=== PATIENT | male | born 1960 | race Caucasian/White ===

== ENCOUNTER 2018-05-03 02:20 | Inpatient (IN) | payer MEDICARE, OTHER ==
[2018-05-03] VITALS (13 sets, daily range): BP systolic 138–183; BP diastolic 80–108
[~2018-05-03] VITALS: Ht 190.5 cm; Wt 87.1 kg
--- NOTE | 2018-05-03 02:28 | ED.ADGEN ---
Past History Past Medical History: COPD, Seizure, Other Past Surgical History: Other Adult General Chief Complaint Chief Complaint ".. I guess I passed out... and I bit my lip..." HPI HPI Patient is a 57 year old male who presents with hx of convulsion and mental status change. Pt. has hx of years of 1/5 to Liter of volka a day. Recently has decided to quit. Pt. is tremulous, and family report he is had a market mental status change and an episode of syncope with convulsions. Patient currently appears somewhat postictal and confused. Review of Systems Review of Systems Constitutional: Denies fever or chills [] Eyes: Denies change in visual acuity, redness, or eye pain [] HENT: Denies nasal congestion or sore throat [] Respiratory: Denies cough or shortness of breath [] Cardiovascular: No additional information not addressed in HPI [] GI: Denies abdominal pain, nausea, vomiting, bloody stools or diarrhea [] : Denies dysuria or hematuria [] Musculoskeletal: Denies back pain or joint pain [] Integument: Denies rash or skin lesions [] Neurologic: Denies headache, focal weakness or sensory changes []history of seizure and syncope Endocrine: Denies polyuria or polydipsia [] All other systems were reviewed and found to be within normal limits, except as documented in this note. Family History Family History Noncontributory Current Medications Current Medications Current Medications Medications (Trade) Dose Ordered Sig/Jeff Start Time Stop Time Status Last Admin Dose Admin Famotidine (Pepcid Vial) 20 mg 1X ONCE 05/03/18 02:45 05/03/18 02:46 DC 05/03/18 03:28 20 MG Lactated Ringer's 1,000 ml @ 160 mls/hr Q6H15M 05/03/18 02:45 05/03/18 06:17 160 MLS/HR Lorazepam (Ativan) 2 mg 1X ONCE 05/03/18 02:45 05/03/18 02:46 DC 05/03/18 03:31 2 MG Multivitamins/ Minerals 10 ml/ Folic Acid 1 mg/ Thiamine HCl 100 mg/Sodium Chloride 1,011.2 ml @ 1,000 mls/ hr Q1H 05/03/18 02:45 05/03/18 03:33 DC 05/03/18 03:33 1,000 MLS/HR Allergies Allergies Allergies Coded Allergies Type Severity Reaction Last Updated Verified No Known Drug Allergies 05/03/18 No Physical Exam Physical Exam Constitutional: Moderately acute distress, non-toxic appearance. [] HENT: Normocephalic, bite ferro to tongue and lip, bilateral external ears normal, oropharynx moist, no oral exudates, nose normal. [] Eyes: PERRLA, EOMI, conjunctiva normal, no discharge. [] Neck: Normal range of motion, no tenderness, supple, no stridor. [] Cardiovascular: Tachycardia Heart rate regular rhythm, no murmur []PMI to the left Lungs & Thorax: Bilateral breath sounds equal at apexes with scattered wheezes auscultation [] Abdomen: Bowel sounds decreased, soft, no tenderness, no masses, no pulsatile masses. [] Incontinence of urine Skin: Warm, dry, no erythema, no rash. [] Back: No tenderness, no CVA tenderness. [] Extremities: No tenderness, no cyanosis, no clubbing, ROM intact, no edema. Arthritic changes. Neurologic: Alert and oriented X 3, no gross motor or sensory function deficits. Moves all extremities on request. Is very tremulous Current Patient Data Vital Signs Vital Signs Date Time Temp Pulse Resp B/P (MAP) Pulse Ox O2 Delivery O2 Flow Rate FiO2 05/03/18 02:20 98.4 91 20 99 Room Air EKG EKG My interpretation EKG shows a sinus rhythm at 88 bpm. Does have right basilar bunch block.[] Radiology/Procedures Radiology/Procedures My interpretation of chest x-ray shows no acute cardiopulmonary findings. Chronic changes consistent with COPD. Mild arthritic changes. My interpretation of head CT shows no shift, mass, edema, bleed, or fracture. Does have significant atrophy.[] Course & Med Decision Making Course & Med Decision Making Pertinent Labs and Imaging studies reviewed. (See chart for details). Discussed presentation, testing and treatment plan with Dr. Bernardo [] Final Impression Final Impression 1. Alcohol withdrawal 2. Mental status change[] 3. Hypomagnesemia 4. Anemia macrocytic hyperchromic 5. Thrombocytopenia 6. Hyponatremia 7. Elevated AST and ALTs Dragon Disclaimer Dragon Disclaimer This electronic medical record was generated, in whole or in part, using a voice recognition dictation system. ALONA URBAN MD May 03, 2018 02:28
[2018-05-03] MEDS ORDERED: LORazepam 2 MG/ML VIAL ONE (02:39)
[2018-05-03] MEDS ORDERED: MVI, ADULT NO.4 WITH VIT K 10 ML VIAL IV ONE (02:39)
[2018-05-03] MEDS ORDERED: FAMOTIDINE 20 MG/2 ML VIAL ONE (02:39)
[2018-05-03] MEDS ORDERED: FOLIC ACID 5 MG/ML SYRINGE for ER IV ONE (02:40)
[2018-05-03] MEDS ORDERED: THIAMINE 200 MG/2 ML VIAL. IV ONE (02:40)
[2018-05-03] MEDS ORDERED: LORazepam 2 MG/ML VIAL IV ONE (02:45)
[2018-05-03] MEDS ORDERED: FAMOTIDINE 20 MG/2 ML VIAL IVP ONE (02:45)
[2018-05-03] MEDS ORDERED: MVI, ADULT NO.4 WITH VIT K 10 ML, FOLIC ACID SYRINGE for ER 1 MG, THIAMINE 100 MG in IV... IV SCH ×4 (02:45)
--- NOTE | 2018-05-03 03:03 | EKG ---
[address] [address] Test Date: 2018-05-03 Test Time: 03:01:20 Pat Name: ALONA DELVALLE Department: Room: Gender: M [employer] Loss [employer] Investigator: WALT : 1960 Requested By: ALONA URBAN Order Number: [id number] Reading MD: Deniz Price MD Measurements Intervals [place] Rate: 88 P: 27 UT: 170 QRS: 62 QRSD: 118 T: 20 QT: 384 QTc: 468 Interpretive Statements SINUS RHYTHM RBBB Electronically Signed On 05-07-2018 11:12:44 CDT by Deniz Price MD
--- NOTE | 2018-05-03 03:05 | RAD ---
CT head without contrast TECHNIQUE: [address] imaging skull base to vertex. HISTORY: Seizure activity, confusion, weakness. FINDINGS: Generalized brain atrophy. No intracranial hemorrhage, mass, hydrocephalus, extra-axial fluid collections or infarction. No acute ischemic changes. Orbits, mastoids, paranasal sinuses and bones are unremarkable. IMPRESSION: No acute intracranial CT abnormality. Exposure: One or more of the following individualized dose reduction techniques were utilized for this examination: 1. Automated exposure control 2. Adjustment of the mA and/or kV according to patient size 3. Use of iterative reconstruction technique Electronically signed by: Lorne Castro MD (05/03/2018 3:01 AM) [facility]
[2018-05-03] MEDS: IV RINGERS SOLUTION,LACTATED 1,000 ML IV SCH ×4 (03:33→22:45)
[2018-05-03] MEDS ORDERED: ONDANSETRON PF 4 MG/2 ML VIAL. IV PRN (03:45)
[2018-05-03] MEDS ORDERED: cloNIDine TTS-2 1 PATCH PATCH TD ONE (04:15)
[2018-05-03 04:31] LABS: ACETAMIN < 2.0 mcg/mL (10-30); ETHANOL < 10 mg/dL (0-10); SALIC 4.8 mg/dL (2.8-20.0)
[2018-05-03 04:34] LABS: ALBUMIN 3.7 g/dL (3.4-5.0); CALCIUM 9.4 mg/dL (8.5-10.1); CREATININE 1.1 mg/dL (0.7-1.3); DIRECT BILIRUBIN 0.4 mg/dL (0.0-0.2); MAGNESIUM 1.2 mg/dL (1.8-2.4); POTASSIUM 3.5 mmol/L (3.5-5.1); TOTAL PROTEIN 8.3 g/dL (6.4-8.2)
[2018-05-03 04:50] LABS: BASO % 0 % (0-3); EOS % 0 % (0-3); HEMATOCRIT 36.9 % (39.0-53.0); HEMOGLOBIN 12.9 g/dL (13.0-17.5); LYMPH # 0.3 x10^3/uL (1.0-4.8); LYMPH % 4 % (24-48); MEAN CORPUSCULAR HEMOGLOBIN 37 pg (25-35); MEAN CORPUSCULAR HGB CONC 35 g/dL (31-37); MEAN CORPUSCULAR VOLUME 105 fL (79-100); MONO # 0.4 x10^3/uL (0.0-1.1); MONO % 6 % (0-9); NEUT # 6.2 x10^3uL (1.8-7.7); NEUT % 90 % (31-73); PLATELET COUNT 44 x10^3/uL (140-400); RED CELL DISTRIBUTION WIDTH 14.2 % (11.5-14.5)
--- NOTE | 2018-05-03 05:01 | RAD ---
AP chest x-ray HISTORY: Seizure activity, confusion and weakness and cough and congestion. FINDINGS: Heart size normal. Mediastinal silhouette is normal. No pneumothorax. No pleural effusions. No pulmonary opacities. At the right lateral lung base there is a 12 mm pulmonary nodule versus asymmetric nipple shadow. Bones are unremarkable. IMPRESSION: No acute process. Possible 12 mm pulmonary nodule at the right lung base versus a nipple shadow. This could be further assessed with PA and lateral chest x-rays with nipple markers. Electronically signed by: Lorne Castro MD (05/03/2018 4:58 AM) [facility]
[2018-05-03 05:07] LABS: ANISOCYTOSIS SLIGHT; PLT ESTIMATE DECREASED (ADEQUATE)
[2018-05-03] MEDS ORDERED: MAGNESIUM SULFATE 2GM 50 ML IV ONE ×2 (06:45→17:45)
[2018-05-03] MEDS: LORazepam 2 MG/ML VIAL IV PRN ×4 (08:43→19:41)
[2018-05-03 08:52] LABS: BARBITURATES NEG (NEG); BENZODIAZEPINES NEG (NEG); CANNABINOIDS NEG (NEG); COCAINE NEG (NEG); METHADONE NEG (NEG); OPIATES NEG (NEG); PHENCYCLIDINE NEG (NEG)
[2018-05-03] MEDS ORDERED: LORazepam 1 MG TABLET PO SCH (09:00)
[2018-05-03] MEDS ORDERED: NICOTINE 21MG PATCH. TD ONE (09:00)
[2018-05-03 09:01] LABS: AMPHETAMINE/METHAMPHETAMINE NEG (NEG)
[2018-05-03] MEDS: NICOTINE 21MG PATCH. TD SCH (09:02)
[2018-05-03 09:03] LABS: BACTERIA,URINE 0 /HPF (0-FEW); BILIRUBIN,URINE NEG (NEG); CLARITY,URINE CLEAR; COLOR,URINE AMBER; GLUCOSE,URINE NEG (NEG); HYALINE CASTS, URINE OCC /HPF; NITRITE,URINE NEG (NEG); SQUAMOUS EPITHELIAL CELL,UR OCC /LPF; UROBILINOGEN,URINE 2 mg/dL (0.2 mg/dL); WBC,URINE RARE /HPF (0-4)
[2018-05-03] MEDS: MVI, ADULT NO.4 WITH VIT K 10 ML, FOLIC ACID SYRINGE for ER 1 MG, THIAMINE 100 MG in IV... IV SCH ×4 (12:10)
[2018-05-03] MEDS: chlordiazePOXIDE HCL 25 MG CAPSULE PO PRN ×3 (14:35→22:53)
[2018-05-03 17:20] LABS: CALCIUM 8.9 mg/dL (8.5-10.1); CREATININE 1.1 mg/dL (0.7-1.3); MAGNESIUM 1.6 mg/dL (1.8-2.4); POTASSIUM 3.3 mmol/L (3.5-5.1)
[2018-05-03] MEDS ORDERED: POTASSIUM CHLORIDE 20 MEQ TABLET.ER. PO ONE ×2 (17:44→17:45)
--- NOTE | 2018-05-03 23:49 | HP ---
ADMIT DATE: 05/03/2018 HISTORY OF PRESENT ILLNESS: The patient is a 57-year-old male patient who came to the Emergency Room with history of convulsion and altered mental status. He apparently has been drinking half a liter of vodka a day for years. He apparently has decided recently to quit. By the time he arrived to the Emergency Room, he was extremely tremulous. His family reported that he has a marked mental status change and an episode of syncope with convulsion. By the time he arrived to the Emergency Room, he was in postictal state and confused. He was extensively investigated in the Emergency Room and was found to be hyponatremic, hypokalemic, and markedly hypomagnesemic. His liver enzymes are elevated. His toxic screen showed the blood alcohol level was less than 10. He was given a banana bag and given also magnesium sulfate and started on alcohol withdrawal protocol and admitted to the ICU for close observation. By the time when I saw him this morning, he continued to be very lethargic and apparently he just received 4 mg of Ativan. PAST MEDICAL HISTORY: Significant for COPD, seizures. PAST SURGICAL HISTORY: Unremarkable. FAMILY HISTORY: Noncontributory. . He apparently lives alone. He has one daughter who is 24 years old who apparently stated that his friend lives with him to assist him as he is disabled. SOCIAL HISTORY: Apparently, he is a smoker and a heavy drinker. REVIEW OF SYSTEMS: Unobtainable, the patient was extremely lethargic. PHYSICAL EXAMINATION: GENERAL: On examining him, he was resting slightly propped up in bed, in no apparent respiratory distress. No pallor, jaundice, cyanosis, or thyromegaly. No jugular venous distension. No lower limb edema. VITAL SIGNS: Her heart rate was 91, blood pressure was 145/84, temperature was 98.4, respiratory rate 20, and oxygen saturation was 99%. HEENT: Examination of the head, eyes, ears, nose and throat showed normocephalic, atraumatic. He clearly has bitten his lower lip, might be swollen. NECK: Supple. HEART: Showed normal first and second heart sounds. No gallop, rub or murmur. CHEST: Clear to auscultation. No crepitation or rhonchi. ABDOMEN: Distended, soft, nontender. NEUROLOGIC: He was very lethargic, arousable, opens his eyes, mumbles some words. All his cranial nerves are intact. EXTREMITIES: He moves extremities without difficulty. LABORATORY AND DIAGNOSTIC DATA: His lab work on admission showed a white cell count of 7000, hemoglobin 12.9, hematocrit 37, MCV 105, and platelet count was only 44,000 with a manual differential showed 90% polymorphs, 4% lymphocytes. His prothrombin time was 11.4, INR 1.1, aPTT was 26. His chemistry showed a serum sodium 133, potassium 3.5, chloride 94, bicarbonate 29, anion gap of 10, BUN 11, creatinine was 1.1, estimated GFR was 69 mL per minute, his glucose 126, calcium was 9.4, magnesium 1.2. Total bilirubin and alkaline phosphatase was normal. AST, ALT slightly elevated. Total protein was 8.3, albumin was 3.7. Urinalysis showed the urine was lacho, clear with the pH of 8, specific gravity of 1.015. There was small amount of protein; however, the urine was negative for glucose, ketones small amount, trace of blood, negative for nitrite and leukocyte esterase. There are 1-2 rbc's, rare wbc's, and occasional, very few bacteria. Her toxic screen showed salicylate was 4.8, acetaminophen less than 2, and blood alcohol level was less than 10 mg/dL. The urine toxicology screen was negative for opiates, methadone, barbiturates, phencyclidine, amphetamine, methamphetamine, benzodiazepine, cocaine, cannabinoids. CT scan of the head showed that there is generalized brain atrophy, no intracranial hemorrhage, mass, hydrocephalus, extraaxial fluid collection or infarction, no acute ischemic changes. The orbits, mastoid, paranasal sinuses, and bones are unremarkable. His chest x-ray showed there is no acute process. The heart size is normal, mediastinal silhouette is normal. No pneumothorax, no pleural effusion, no pulmonary opacities. At the right lateral lung bases, a 12-mm pulmonary nodule versus symmetric nipple shadow. Bones are unremarkable. ASSESSMENT AND PLAN: The patient was admitted with alcohol withdrawal, altered mental status, marked hypomagnesemia, microcytic hypochromic anemia, thrombocytopenia, hyponatremia, and elevated liver enzymes. The patient will continue with the banana bag, continue with alcohol withdrawal protocol, continue to replenish his magnesium. We will consult Dr. Zhang for possible alcohol withdrawal seizures and follow him closely and decide the further management according to his response. DENIZ PRO MD DR: ENID/zenobia JOB#: [id number] / [id number]
[2018-05-04] VITALS (11 sets, daily range): BP systolic 129–168; BP diastolic 81–96
--- NOTE | 2018-05-04 00:34 | CONS ---
DATE OF CONSULTATION: REFERRING PHYSICIAN: Dr. Bernardo. REASON FOR CONSULTATION: Rule out seizure. HISTORY OF PRESENT ILLNESS: This is a 57-year-old right-handed male who was admitted through Emergency Room after he presented with his recent history of mental status changes and convulsions. The patient has been alcoholic and drinking one-fifth of 2 liter of vodka daily for the last several years He stated he probably had a seizure and he bit his tongue. He does remember the event. He also stated that he is complaining of generalized weakness and frequent falls. The last drink was approximately 4 days ago. The patient had seizure-like activities prior to the admission. Currently, he denies headaches, visual disturbances, nausea, vomiting, chest pain, shortness of breath or palpitation. He has been suffering from tremor of the upper and lower extremities since he quit drinking 4 days ago. Initial nonenhanced head CT scan revealed no evidence of acute intracranial process. PAST MEDICAL HISTORY: Significant for alcoholism and psychiatric disorders. SOCIAL HISTORY: The patient drinks one-fifth of 2 liters of vodka daily. He is disabled. He denies illegal drug use. The patient is a smoker. CURRENT HOSPITAL MEDICATIONS: Includes magnesium, nicotine patch, multivitamins, lorazepam, Librium 100 mg based on his CIWA and Zofran for vomiting along with IV fluid of normal saline. ALLERGIES: No known drug allergies. FAMILY HISTORY: Noncontributory. PHYSICAL EXAMINATION: GENERAL: Well-developed, well-nourished male, not in acute distress. VITAL SIGNS: He weighs 183 pounds. Blood pressure 139/82, respiratory rate 20, pulse is 78, temperature is 98.2, oxygen saturation 98% on room air. HEENT: Normocephalic. The patient has an upper lip contusion probably due to tongue biting secondary to a seizure. NECK: Supple. Negative for carotid bruit, lymphadenopathy or thyromegaly. LUNGS: Clear to A and P. CARDIOVASCULAR: Regular rate and rhythm, normal S1, S2. ABDOMEN: Soft. Bowel sounds positive. EXTREMITIES: Negative for cyanosis, clubbing or pitting edema. NEUROLOGIC: 1. Mental status: The patient is alert to himself and place. His speech is slow, but coherent. There is no language dysfunction. The patient recalls 1/3 immediately and after 1 and 3 minutes. Judgment abstract and thinking are fair. The patient denies hallucination or delusion. 2. Cranial Nerves: Visual carnes are full. The pupils are reactive to light and accommodation. The extraocular movements are intact. There is no nystagmus. There is no facial motor or sensory deficit. Hearing is intact bilaterally. The palate is elevated symmetrically. Sternocleidomastoid muscles are powerful bilaterally. The patient shrugs his shoulders symmetrically, protrudes his tongue in the midline without fasciculation or atrophy. 3. Motor: No focal muscle bulk was seen. The tone is normal. The strength is 4/5 throughout. 4. Sensory: Revealed normal pinprick and light touch senses throughout. 5. Deep tendon reflexes were symmetric and hypoactive with absent Achilles responses. 6. Gait: The stance is unsteady. LABORATORY DATA: CBC revealed white blood cells of 7000, hemoglobin 12.9, hematocrit 36.9, platelet count ____. Chemistry revealed sodium 134, potassium 3.3, chloride 96, BUN 10, creatinine 1.1, glucose 84, calcium is 8.9. Magnesium is low at 1.6. Liver enzymes are elevated. Urinalysis negative for urinary tract infection. Urine drug screen is negative with ____ alcohol less than 10. DIAGNOSTIC DATA: Head CT scan revealed no acute intracranial process. Chest x-ray revealed a 12 mm pulmonary nodule at the right lung base. IMPRESSION: 1. Confusion and seizure likely represent alcohol withdrawal seizure. 2. Long history of alcoholism. 3. Microcytic anemia with thrombocytopenia and elevated liver enzymes due to alcoholism. RECOMMENDATIONS: Continue with current management initiated by Dr. Bernardo and DORON protocol for alcohol withdrawal seizure. M Jones HYDE MD DR: HERON/zenobia JOB#: [id number] / [id number]
[2018-05-04] MEDS: LORazepam 2 MG/ML VIAL IV PRN ×8 (00:46→22:48)
[2018-05-04] MEDS: IV RINGERS SOLUTION,LACTATED 1,000 ML IV SCH ×3 (03:45→21:22)
[2018-05-04] MEDS: chlordiazePOXIDE HCL 25 MG CAPSULE PO PRN ×4 (05:36→21:11)
[2018-05-04 05:50] LABS: ALBUMIN/GLOBULIN RATIO 0.8 (1.0-1.7); CALCIUM 8.8 mg/dL (8.5-10.1); MAGNESIUM 1.9 mg/dL (1.8-2.4); POTASSIUM 3.4 mmol/L (3.5-5.1); TOTAL BILIRUBIN 0.8 mg/dL (0.2-1.0); TOTAL PROTEIN 6.7 g/dL (6.4-8.2)
[2018-05-04 05:52] LABS: BASO % 0 % (0-3); EOS # 0.1 x10^3/uL (0.0-0.7); EOS % 2 % (0-3); HEMATOCRIT 31.5 % (39.0-53.0); HEMOGLOBIN 10.9 g/dL (13.0-17.5); LYMPH # 0.7 x10^3/uL (1.0-4.8); LYMPH % 14 % (24-48); MEAN CORPUSCULAR HEMOGLOBIN 36 pg (25-35); MEAN CORPUSCULAR HGB CONC 35 g/dL (31-37); MEAN CORPUSCULAR VOLUME 106 fL (79-100); MONO # 0.4 x10^3/uL (0.0-1.1); MONO % 8 % (0-9); NEUT # 3.8 x10^3uL (1.8-7.7); NEUT % 76 % (31-73); PLATELET COUNT 34 x10^3/uL (140-400); RED BLOOD COUNT 2.98 x10^6/uL (4.30-5.70); RED CELL DISTRIBUTION WIDTH 13.8 % (11.5-14.5)
[2018-05-04] MEDS: NICOTINE 21MG PATCH. TD SCH (09:32)
[2018-05-04] MEDS: MVI, ADULT NO.4 WITH VIT K 10 ML, FOLIC ACID SYRINGE for ER 1 MG, THIAMINE 100 MG in IV... IV SCH ×4 (09:34)
--- NOTE | 2018-05-04 13:52 | PN ---
DATE: SUBJECTIVE: The patient denies any new medical or neurological complaints. He continues to have tremor of the upper extremities. There has been no recurrent seizure-like activity since admission. OBJECTIVE: GENERAL: Well-developed, well-nourished white male, not in acute distress. VITAL SIGNS: Afebrile, blood pressure 125/72, respiratory rate 24, pulse is 75 and regular, oxygen saturation is 98% on room air. HEENT: Normocephalic, atraumatic, otherwise, unremarkable. NECK: Supple. Negative for carotid bruit, lymphadenopathy or thyromegaly. LUNGS: Clear to A and P. CARDIOVASCULAR: Regular rate and rhythm, normal S1, S2. ABDOMEN: Soft. Bowel sounds positive. EXTREMITIES: Negative for cyanosis, clubbing or edema. NEUROLOGIC: The patient is drowsy, but arousable. He follows 1-step commands. Speech is slow. There is no language dysfunction. Memory, judgment, and abstract thinking are fair. The patient denies hallucination or delusion. Cranial nerves are intact. No focal motor or sensory deficit. The patient has postural kinetic tremors of both upper extremities. Tone is normal. Strength is 4/5 throughout. Sensory examination revealed normal pinprick and light touch senses throughout. Deep tendon reflexes were symmetric and hypoactive with absent Achilles responses. Gait not tested. LABORATORY DATA: CBC revealed white blood cells of 5000, hemoglobin 10.9, hematocrit 31.5, platelet count 34,000. Chemistry revealed sodium of 138, potassium 3.4, chloride 101, CO2 of 29, BUN 10, creatinine 1, glucose 81, calcium 8.8. Magnesium is 1.9 with elevated liver enzymes. IMPRESSION: 1. Possible alcohol withdrawal seizure with delirium. 2. Chronic alcoholism. 3. Anemia and thrombocytopenia with elevated liver enzymes secondary to alcoholism. RECOMMENDATIONS: Continue with current management initiated by ____ with [facility] protocols. M Jones HYDE MD DR: HERON/zenobia JOB#: [id number] / [id number]
[2018-05-04 18:34] LABS: BASO % 1 % (0-3); EOS # 0.1 x10^3/uL (0.0-0.7); EOS % 3 % (0-3); HEMATOCRIT 31.8 % (39.0-53.0); HEMOGLOBIN 10.8 g/dL (13.0-17.5); LYMPH # 0.6 x10^3/uL (1.0-4.8); LYMPH % 12 % (24-48); MEAN CORPUSCULAR HEMOGLOBIN 37 pg (25-35); MEAN CORPUSCULAR HGB CONC 34 g/dL (31-37); MEAN CORPUSCULAR VOLUME 108 fL (79-100); MONO # 0.3 x10^3/uL (0.0-1.1); MONO % 7 % (0-9); NEUT # 3.8 x10^3uL (1.8-7.7); NEUT % 78 % (31-73); PLATELET COUNT 35 x10^3/uL (140-400); RED BLOOD COUNT 2.95 x10^6/uL (4.30-5.70); WHITE BLOOD COUNT 4.8 x10^3/uL (4.0-11.0)
--- NOTE | 2018-05-04 20:54 | PDOC ---
SUBJECTIVE: RN reports no problems overnight. Patient has periods of confusion but no combative behavior or extreme agitation. Still having tremors no seizure activity noted. I find the patient to be eating lunch. He is obviously sedated, propped leaning forward over his tray table. He is feeding himself however does frequently drop the food from utensils. He denies any complaints to me. No nausea, pain, chest discomfort, or focal neurologic deficit. His speech is slurred most communication from him derived from nodding yes/no and pointing. Neurology has evaluated the patient and Dr Zhang's assistance appreciated. OBJECTIVE: Problems: Problems Medical Problems: (1) Mental status change resolved Status: Acute Vital Signs: Vital Signs Date Time Temp Pulse Resp B/P (MAP) Pulse Ox O2 Delivery O2 Flow Rate FiO2 05/04/18 19:19 98.3 70 18 157/93 (114) 98 Room Air 05/03/18 07:48 0.0 I & O Intake and Output 05/04/18 06:59 Intake Total 1070 ml Output Total 852 ml Balance 218 ml Intake Oral 1070 ml Output Urine Total 852 ml Labs: Laboratory Tests Test 05/03/18 03:39 05/03/18 07:38 05/03/18 08:20 05/03/18 17:00 White Blood Count 7.0 x10^3/uL (4.0-11.0) Red Blood Count 3.50 x10^6/uL (4.30-5.70) Hemoglobin 12.9 g/dL (13.0-17.5) Hematocrit 36.9 % (39.0-53.0) Mean Corpuscular Volume 105 fL (79-100) Mean Corpuscular Hemoglobin 37 pg (25-35) Mean Corpuscular Hemoglobin Concent 35 g/dL (31-37) Red Cell Distribution Width 14.2 % (11.5-14.5) Platelet Count 44 x10^3/uL (140-400) Neutrophils (%) (Auto) 90 % (31-73) Lymphocytes (%) (Auto) 4 % (24-48) Monocytes (%) (Auto) 6 % (0-9) Eosinophils (%) (Auto) 0 % (0-3) Basophils (%) (Auto) 0 % (0-3) Neutrophils # (Auto) 6.2 x10^3uL (1.8-7.7) Lymphocytes # (Auto) 0.3 x10^3/uL (1.0-4.8) Monocytes # (Auto) 0.4 x10^3/uL (0.0-1.1) Eosinophils # (Auto) 0.0 x10^3/uL (0.0-0.7) Basophils # (Auto) 0.0 x10^3/uL (0.0-0.2) Platelet Estimate Decreased (ADEQUATE) Anisocytosis Slight Macrocytosis Slight Prothrombin Time 11.4 SEC (9.4-11.4) Prothromb Time International Ratio 1.1 (0.9-1.1) Activated Partial Thromboplast Time 26 SEC (23-33) Sodium Level 133 mmol/L (136-145) 134 mmol/L (136-145) Potassium Level 3.5 mmol/L (3.5-5.1) 3.3 mmol/L (3.5-5.1) Chloride Level 94 mmol/L (98-107) 96 mmol/L (98-107) Carbon Dioxide Level 29 mmol/L (21-32) 30 mmol/L (21-32) Anion Gap 10 (6-14) 8 (6-14) Blood Urea Nitrogen 11 mg/dL (8-26) 10 mg/dL (8-26) Creatinine 1.1 mg/dL (0.7-1.3) 1.1 mg/dL (0.7-1.3) Estimated GFR (Cockcroft-Gault) 69.0 69.0 Glucose Level 126 mg/dL (70-99) 84 mg/dL (70-99) Calcium Level 9.4 mg/dL (8.5-10.1) 8.9 mg/dL (8.5-10.1) Magnesium Level 1.2 mg/dL (1.8-2.4) 1.6 mg/dL (1.8-2.4) Total Bilirubin 1.0 mg/dL (0.2-1.0) Direct Bilirubin 0.4 mg/dL (0.0-0.2) Aspartate Amino Transf (AST/SGOT) 137 U/L (15-37) Alanine Aminotransferase (ALT/SGPT) 73 U/L (16-63) Alkaline Phosphatase 101 U/L (46-116) Total Protein 8.3 g/dL (6.4-8.2) Albumin 3.7 g/dL (3.4-5.0) Salicylates Level 4.8 mg/dL (2.8-20.0) Salicylate Last Dose Date Unknown Salicylate Last Dose Time Unknown Acetaminophen Level < 2.0 mcg/mL (10-30) Acetaminophen Last Dose Date Unknown Acetaminophen Last Dose Time Unknown Ethyl Alcohol Level < 10 mg/dL (0-10) Nasal Screen MRSA (PCR) Negative (Negative) Urine Collection Type Unknown Urine Color Shira Urine Clarity Clear Urine pH 8.0 Urine Specific [place] 1.015 Urine Protein 30 mg/dl (NEG-TRACE) Urine Glucose (UA) Neg mg/dL (NEG) Urine Ketones (Stick) Neg mg/dL (NEG) Urine Blood Trace (NEG) Urine Nitrite Neg (NEG) Urine Bilirubin Neg (NEG) Urine Urobilinogen Dipstick 2 mg/dL (0.2 mg/dL) Urine Leukocyte Esterase Neg (NEG) Urine RBC 1-2 /HPF (0-2) Urine WBC Rare /HPF (0-4) Urine Squamous Epithelial Cells Occ /LPF Urine Bacteria 0 /HPF (0-FEW) Urine Hyaline Casts Occ /HPF Urine Mucus Slight /LPF Urine Opiates Screen Neg (NEG) Urine Methadone Screen Neg (NEG) Urine Barbiturates Neg (NEG) Urine Phencyclidine Screen Neg (NEG) Urine Amphetamine/Methamphetamine Neg (NEG) Urine Benzodiazepines Screen Neg (NEG) Urine Cocaine Screen Neg (NEG) Urine Cannabinoids Screen Neg (NEG) Urine Ethyl Alcohol Neg (NEG) Test 05/04/18 05:10 05/04/18 18:20 White Blood Count 5.0 x10^3/uL (4.0-11.0) 4.8 x10^3/uL (4.0-11.0) Red Blood Count 2.98 x10^6/uL (4.30-5.70) 2.95 x10^6/uL (4.30-5.70) Hemoglobin 10.9 g/dL (13.0-17.5) 10.8 g/dL (13.0-17.5) Hematocrit 31.5 % (39.0-53.0) 31.8 % (39.0-53.0) Mean Corpuscular Volume 106 fL (79-100) 108 fL (79-100) Mean Corpuscular Hemoglobin 36 pg (25-35) 37 pg (25-35) Mean Corpuscular Hemoglobin Concent 35 g/dL (31-37) 34 g/dL (31-37) Red Cell Distribution Width 13.8 % (11.5-14.5) 14.0 % (11.5-14.5) Platelet Count 34 x10^3/uL (140-400) 35 x10^3/uL (140-400) Neutrophils (%) (Auto) 76 % (31-73) 78 % (31-73) Lymphocytes (%) (Auto) 14 % (24-48) 12 % (24-48) Monocytes (%) (Auto) 8 % (0-9) 7 % (0-9) Eosinophils (%) (Auto) 2 % (0-3) 3 % (0-3) Basophils (%) (Auto) 0 % (0-3) 1 % (0-3) Neutrophils # (Auto) 3.8 x10^3uL (1.8-7.7) 3.8 x10^3uL (1.8-7.7) Lymphocytes # (Auto) 0.7 x10^3/uL (1.0-4.8) 0.6 x10^3/uL (1.0-4.8) Monocytes # (Auto) 0.4 x10^3/uL (0.0-1.1) 0.3 x10^3/uL (0.0-1.1) Eosinophils # (Auto) 0.1 x10^3/uL (0.0-0.7) 0.1 x10^3/uL (0.0-0.7) Basophils # (Auto) 0.0 x10^3/uL (0.0-0.2) 0.0 x10^3/uL (0.0-0.2) Sodium Level 138 mmol/L (136-145) Potassium Level 3.4 mmol/L (3.5-5.1) Chloride Level 101 mmol/L (98-107) Carbon Dioxide Level 29 mmol/L (21-32) Anion Gap 8 (6-14) Blood Urea Nitrogen 10 mg/dL (8-26) Creatinine 1.0 mg/dL (0.7-1.3) Estimated GFR (Cockcroft-Gault) 77.0 BUN/Creatinine Ratio 10 (6-20) Glucose Level 81 mg/dL (70-99) Calcium Level 8.8 mg/dL (8.5-10.1) Magnesium Level 1.9 mg/dL (1.8-2.4) Total Bilirubin 0.8 mg/dL (0.2-1.0) Aspartate Amino Transf (AST/SGOT) 162 U/L (15-37) Alanine Aminotransferase (ALT/SGPT) 72 U/L (16-63) Alkaline Phosphatase 79 U/L (46-116) Total Protein 6.7 g/dL (6.4-8.2) Albumin 3.0 g/dL (3.4-5.0) Albumin/Globulin Ratio 0.8 (1.0-1.7) Prothrombin Time 11.4 SEC (9.4-11.4) Prothromb Time International Ratio 1.1 (0.9-1.1) Activated Partial Thromboplast Time 25 SEC (23-33) Physical Exam: GEN: NAD, disheveled, disoriented, eating cake during evaluation HEENT: nose/throat clear membranes moist, no scleral icterus noted NECK: supple, nontender CVS: regular rate, no murmur auscultated PULM: clear breath sounds bilaterally, no respiratory distress ABD: soft, nontender, BS present NEURO: no seizure activity or lateralizing deficit, upper extremity tremor noted ASSESSMENT: Alcohol withdrawal syndrome Reported alcohol withdrawal seizure Etoh associated macrocytic anemia, thrombocytopenia Alcoholic liver disease Hyponatremia and hypokalemia PLAN: Continue alcohol withdrawal protocol IV hydration Slo-mag 64mg daily SUREKHA CANDELARIA DO May 04, 2018 20:54
[2018-05-05] VITALS (10 sets, daily range): BP systolic 142–187; BP diastolic 82–98
[2018-05-05] MEDS: chlordiazePOXIDE HCL 25 MG CAPSULE PO PRN (02:00)
[2018-05-05] MEDS: LORazepam 2 MG/ML VIAL IV PRN ×5 (02:00→21:45)
[2018-05-05] MEDS: IV RINGERS SOLUTION,LACTATED 1,000 ML IV SCH ×4 (04:06→23:30)
[2018-05-05 05:54] LABS: ALBUMIN 2.8 g/dL (3.4-5.0); ALBUMIN/GLOBULIN RATIO 0.8 (1.0-1.7); CALCIUM 8.7 mg/dL (8.5-10.1); CREATININE 0.9 mg/dL (0.7-1.3); TOTAL BILIRUBIN 0.7 mg/dL (0.2-1.0); TOTAL PROTEIN 6.3 g/dL (6.4-8.2)
[2018-05-05] MEDS: POTASSIUM CHLORIDE 20 MEQ TABLET.ER. PO SCH ×2 (07:59→11:06)
[2018-05-05] MEDS: MAGNESIUM CHLORIDE ER 64 MG TABLET.ER PO SCH (07:59)
[2018-05-05] MEDS: NICOTINE 21MG PATCH. TD SCH (08:01)
[2018-05-05] MEDS: MVI, ADULT NO.4 WITH VIT K 10 ML, FOLIC ACID SYRINGE for ER 1 MG, THIAMINE 100 MG in IV... IV SCH ×4 (11:05)
--- NOTE | 2018-05-05 11:14 | PDOC ---
SUBJECTIVE: RN reports no new issues since yesterday's evaluation. No seizure activity, patient been confused but overall cooperative. Mildly hypertensive as expected otherwise vital signs are remained stable. I find the patient lying on his back with the television on. He appears to be actively watching it, and does not appear to be as lethargic discoordinated as yesterday. However I quickly realized through questioning him that he continues to be very disoriented. I did not observe him to be hallucinating nor did I see any seizure activity. His tremors while present do appear to be less. Potassium was 3.0 this morning so ICU electrolyte protocol initiated. OBJECTIVE: Problems: Problems Medical Problems: (1) Mental status change resolved Status: Acute Vital Signs: Vital Signs Date Time Temp Pulse Resp B/P (MAP) Pulse Ox O2 Delivery O2 Flow Rate FiO2 05/05/18 08:00 Room Air 05/05/18 07:10 61 21 157/89 (111) 93 05/05/18 05:12 98.1 05/03/18 07:48 0.0 I & O Intake and Output 05/05/18 07:00 Intake Total 4942.1 ml Output Total 860 ml Balance 4082.1 ml Intake Oral 1600 ml IV Total 1011.1 ml Other 2331 ml Output Urine Total 860 ml # Voids 6 Labs: Laboratory Tests Test 05/03/18 17:00 05/04/18 05:10 05/04/18 18:20 05/05/18 05:18 Sodium Level 134 mmol/L (136-145) 138 mmol/L (136-145) 137 mmol/L (136-145) Potassium Level 3.3 mmol/L (3.5-5.1) 3.4 mmol/L (3.5-5.1) 3.0 mmol/L (3.5-5.1) Chloride Level 96 mmol/L (98-107) 101 mmol/L (98-107) 102 mmol/L (98-107) Carbon Dioxide Level 30 mmol/L (21-32) 29 mmol/L (21-32) 26 mmol/L (21-32) Anion Gap 8 (6-14) 8 (6-14) 9 (6-14) Blood Urea Nitrogen 10 mg/dL (8-26) 10 mg/dL (8-26) 9 mg/dL (8-26) Creatinine 1.1 mg/dL (0.7-1.3) 1.0 mg/dL (0.7-1.3) 0.9 mg/dL (0.7-1.3) Estimated GFR (Cockcroft-Gault) 69.0 77.0 87.0 Glucose Level 84 mg/dL (70-99) 81 mg/dL (70-99) 83 mg/dL (70-99) Calcium Level 8.9 mg/dL (8.5-10.1) 8.8 mg/dL (8.5-10.1) 8.7 mg/dL (8.5-10.1) Magnesium Level 1.6 mg/dL (1.8-2.4) 1.9 mg/dL (1.8-2.4) 1.6 mg/dL (1.8-2.4) White Blood Count 5.0 x10^3/uL (4.0-11.0) 4.8 x10^3/uL (4.0-11.0) Red Blood Count 2.98 x10^6/uL (4.30-5.70) 2.95 x10^6/uL (4.30-5.70) Hemoglobin 10.9 g/dL (13.0-17.5) 10.8 g/dL (13.0-17.5) Hematocrit 31.5 % (39.0-53.0) 31.8 % (39.0-53.0) Mean Corpuscular Volume 106 fL (79-100) 108 fL (79-100) Mean Corpuscular Hemoglobin 36 pg (25-35) 37 pg (25-35) Mean Corpuscular Hemoglobin Concent 35 g/dL (31-37) 34 g/dL (31-37) Red Cell Distribution Width 13.8 % (11.5-14.5) 14.0 % (11.5-14.5) Platelet Count 34 x10^3/uL (140-400) 35 x10^3/uL (140-400) Neutrophils (%) (Auto) 76 % (31-73) 78 % (31-73) Lymphocytes (%) (Auto) 14 % (24-48) 12 % (24-48) Monocytes (%) (Auto) 8 % (0-9) 7 % (0-9) Eosinophils (%) (Auto) 2 % (0-3) 3 % (0-3) Basophils (%) (Auto) 0 % (0-3) 1 % (0-3) Neutrophils # (Auto) 3.8 x10^3uL (1.8-7.7) 3.8 x10^3uL (1.8-7.7) Lymphocytes # (Auto) 0.7 x10^3/uL (1.0-4.8) 0.6 x10^3/uL (1.0-4.8) Monocytes # (Auto) 0.4 x10^3/uL (0.0-1.1) 0.3 x10^3/uL (0.0-1.1) Eosinophils # (Auto) 0.1 x10^3/uL (0.0-0.7) 0.1 x10^3/uL (0.0-0.7) Basophils # (Auto) 0.0 x10^3/uL (0.0-0.2) 0.0 x10^3/uL (0.0-0.2) BUN/Creatinine Ratio 10 (6-20) 10 (6-20) Total Bilirubin 0.8 mg/dL (0.2-1.0) 0.7 mg/dL (0.2-1.0) Aspartate Amino Transf (AST/SGOT) 162 U/L (15-37) 180 U/L (15-37) Alanine Aminotransferase (ALT/SGPT) 72 U/L (16-63) 97 U/L (16-63) Alkaline Phosphatase 79 U/L (46-116) 73 U/L (46-116) Total Protein 6.7 g/dL (6.4-8.2) 6.3 g/dL (6.4-8.2) Albumin 3.0 g/dL (3.4-5.0) 2.8 g/dL (3.4-5.0) Albumin/Globulin Ratio 0.8 (1.0-1.7) 0.8 (1.0-1.7) Platelet Estimate Decreased (ADEQUATE) Large Platelets Present Macrocytosis Present Prothrombin Time 11.4 SEC (9.4-11.4) Prothromb Time International Ratio 1.1 (0.9-1.1) Activated Partial Thromboplast Time 25 SEC (23-33) Physical Exam: General: Lethargic but arousable, his color has improved, no apparent distress HEENT: Membranes are pink and moist, nose and throat clear Neck: Supple, nontender Cardiovascular: Regular rate and rhythm distal pulses intact Pulmonary: Clear breath sounds bilaterally no respiratory distress Abdomen: Soft, mildly distended no tenderness elicited bowel sounds present Extremities: Atraumatic, no clubbing cyanosis or edema Neuro: No focal deficits noted as tested due to sedative meds, persistent tremor ASSESSMENT: Alcohol withdrawal syndrome Reported history of alcohol withdrawal seizure Alcoholic liver disease Hyponatremia and hypo-Radha via Alcohol related macrocytic anemia and thrombocytopenia Hypomagnesemia PLAN: Continue alcohol withdrawal protocol. Continue seizure precautions and monitoring. ICU electrolyte protocol Continue current medications, morning labs ordered SUREKHA CANDELARIA DO May 05, 2018 11:14
[2018-05-05] MEDS ORDERED: cloNIDine TTS-1 1 PATCH PATCH TD SCH (17:30)
--- NOTE | 2018-05-05 18:13 | PN ---
DATE: 05/05/2018 SUBJECTIVE: The patient continues to have a tremendous tremor of the upper extremity and unsteady gait. He denies any other new medical or neurological complaints. OBJECTIVE: GENERAL: Well-developed, well-nourished white man in no acute distress. VITAL SIGNS: Blood pressure 142/82, respiratory rate 22, pulse is 65, temperature 98.1, oxygen saturation 99% on room air. HEENT: Normocephalic, atraumatic, otherwise unremarkable. NECK: Supple, negative for carotid bruit, lymphadenopathy, JVD, or thyromegaly. LUNGS: Clear to A and P. CARDIOVASCULAR: Regular rate and rhythm, normal S1-S2. ABDOMEN: Soft, bowel sounds positive. EXTREMITIES: Negative for cyanosis, clubbing, or pitting edema. NEUROLOGIC: Mental Status: The patient is alert, but disoriented. Speech is dysarthric. The patient has postural and kinetic tremors of the upper extremities and abnormal [id number] bilaterally. Sensory examination revealed normal pinprick and light touch senses throughout. Deep tendon reflexes were symmetric and hypoactive with absent Achilles responses. Gait and stance is unsteady. The patient is markedly ataxic. IMPRESSION: 1. Most likely alcohol withdrawal seizure. 2. Alcohol withdrawal seizure. 3. Anemia. 4. Thrombocytopenia with elevated liver enzymes secondary to alcoholism. RECOMMENDATION: Continue with current management initiated by Dr. Bernardo and with [facility] protocol for alcohol withdrawal seizure. M Jones HYDE MD DR: MARCOS/zenobia JOB#: [id number] / [id number]
[2018-05-06] VITALS (7 sets, daily range): BP systolic 110–177; BP diastolic 82–103
[2018-05-06] MEDS: chlordiazePOXIDE HCL 25 MG CAPSULE PO PRN ×2 (00:37→18:29)
[2018-05-06] MEDS: LORazepam 2 MG/ML VIAL IV PRN ×2 (00:38→10:11)
[2018-05-06] MEDS: IV RINGERS SOLUTION,LACTATED 1,000 ML IV SCH ×5 (05:07→17:21)
[2018-05-06 05:53] LABS: BASO % 1 % (0-3); EOS # 0.1 x10^3/uL (0.0-0.7); EOS % 3 % (0-3); HEMATOCRIT 30.2 % (39.0-53.0); HEMOGLOBIN 10.4 g/dL (13.0-17.5); LYMPH # 0.7 x10^3/uL (1.0-4.8); LYMPH % 15 % (24-48); MEAN CORPUSCULAR HEMOGLOBIN 37 pg (25-35); MEAN CORPUSCULAR HGB CONC 35 g/dL (31-37); MEAN CORPUSCULAR VOLUME 107 fL (79-100); MONO # 0.5 x10^3/uL (0.0-1.1); MONO % 11 % (0-9); NEUT # 3.5 x10^3uL (1.8-7.7); NEUT % 71 % (31-73); PLATELET COUNT 43 x10^3/uL (140-400); RED BLOOD COUNT 2.81 x10^6/uL (4.30-5.70); RED CELL DISTRIBUTION WIDTH 14.2 % (11.5-14.5); WHITE BLOOD COUNT 4.9 x10^3/uL (4.0-11.0)
[2018-05-06 06:07] LABS: ALBUMIN 2.9 g/dL (3.4-5.0); ALBUMIN/GLOBULIN RATIO 0.8 (1.0-1.7); CALCIUM 9.1 mg/dL (8.5-10.1); CREATININE 0.9 mg/dL (0.7-1.3); MAGNESIUM 1.3 mg/dL (1.8-2.4); POTASSIUM 3.5 mmol/L (3.5-5.1); TOTAL BILIRUBIN 0.7 mg/dL (0.2-1.0); TOTAL PROTEIN 6.4 g/dL (6.4-8.2)
[2018-05-06] MEDS ORDERED: MAGNESIUM SULFATE 2GM 50 ML IV ONE (07:45)
[2018-05-06] MEDS: NICOTINE 21MG PATCH. TD SCH (08:06)
[2018-05-06] MEDS: MAGNESIUM CHLORIDE ER 64 MG TABLET.ER PO SCH (09:22)
[2018-05-06] MEDS: MVI, ADULT NO.4 WITH VIT K 10 ML, FOLIC ACID SYRINGE for ER 1 MG, THIAMINE 100 MG in IV... IV SCH ×4 (09:22)
--- NOTE | 2018-05-06 09:49 | PN ---
DATE: 05/06/2018 SUBJECTIVE: The patient is resting, slightly propped up in bed, in no apparent distress. He is definitely more awake and alert, oriented to himself, but not to time or place. He apparently has not slept the whole night, continued to be restless, attempted to get up, but he is very weak and unsteady, requires 2-person assist to get into the bedside commode. PHYSICAL EXAMINATION: GENERAL: When I examined him, he looked well and was clearly in no apparent respiratory distress. No pallor, slightly pale. No jaundice, cyanosis, or thyromegaly. No jugular venous distension. No lower limb edema. VITAL SIGNS: Her heart rate was 62, blood pressure was 167/103, temperature was 98.1, respiratory rate 22, and oxygen saturation was 98%. HEENT: Examination of the head, eyes, ears, nose and throat showed normocephalic, atraumatic. NECK: Supple. HEART: Showed normal first and second sounds. No gallop, rub or murmur. CHEST: Clear to auscultation. No crepitation or rhonchi. ABDOMEN: Distended, soft, nontender. NEUROLOGIC: He is definitely more awake and still very confused, disoriented. His intake was 4900, output was 860. LABORATORY DATA: Lab work this morning showed a serum sodium 137, potassium 3.5, chloride 104, bicarbonate 26, anion gap of 7, BUN 8, creatinine 0.9, estimated GFR was 87 mL per minute. His glucose was 79, calcium was 9.1, magnesium continues to be low at 1.3. Total bilirubin and alkaline phosphatase was normal. AST, ALT actually is anything higher. His total protein was 6.4, albumin was 2.9. White cell count was 4900, hemoglobin 10, hematocrit 30, MCV 107, and platelet count of 43,000. His toxic screen was negative. Urinalysis was unremarkable and his nasal screen for MRSA by PCR was negative. ASSESSMENT: 1. The patient was admitted with alcohol withdrawal and alcohol withdrawal seizures. 2. Alcoholic liver disease. 3. Marked hypomagnesemia. 4. Microcytic anemia. 5. Thrombocytopenia. 6. Hyponatremia. 7. Elevated liver enzymes. PLAN: Plan is to continue replenish with magnesium. His sodium and potassium has largely replenished. Continue with the alcohol withdrawal protocol and the patient is very unsteady, to be discharged, and will evaluate him again tomorrow to see whether he can be admitted to swing bed. DENIZ PRO MD DR: ENID/zenobia JOB#: [id number] / [id number]
--- NOTE | 2018-05-06 10:35 | PN ---
DATE: 05/06/2018 SUBJECTIVE: The patient denies any new medical or neurological complaints; however, continued to be somewhat confused and disoriented. OBJECTIVE: GENERAL: Well-developed, well-nourished male, not in acute distress. VITAL SIGNS: Blood pressure 167/106, respiratory 22, pulse is 62 and regular, temperature is 98.1, oxygen saturation 98% on room air. HEENT: Normocephalic, atraumatic, otherwise unremarkable. NECK: Supple. Negative for carotid bruit, lymphadenopathy or thyromegaly. LUNGS: Clear to A and P. CARDIOVASCULAR: Regular rate and rhythm, normal S1 and S2. ABDOMEN: Soft. Bowel sounds positive. EXTREMITIES: Negative for cyanosis, clubbing, pitting edema. NEUROLOGICAL: Mental Status: The patient is alert, oriented x 2. Speech is fluent. No language dysfunction. The patient recalls 1/3 immediately and after 1 and 3 minutes. Judgment and abstracting thinking are fair. The patient denies hallucination or delusion. Cranial nerves are intact. Motor Examination: No focal muscle bulk was seen. The tone is normal. The patient has a mild postural and kinetic tremors of the upper extremities. Sensory examination revealed normal pinprick and light touch senses throughout. Deep tendon reflexes were symmetric and hypoactive with absent Achilles responses. Gait: The patient is ataxic. LABORATORY DATA: CBC revealed white blood cells of 4.9 thousand, hemoglobin 10.4, hematocrit 30.2, platelet count 43,000. Chemistry reveals a sodium of 137, potassium 3.5, chloride 104, CO2 26, BUN 8, creatinine 0.9, glucose 79, calcium is 9.1. Liver enzymes are elevated. IMPRESSION: 1. Seizure-like activities, likely represent alcohol withdrawal seizure. 2. Alcoholism resulted in alcohol withdrawal syndrome. 3. Anemia of microcytic type due to alcoholism along with elevated liver enzymes and thrombocytopenia. RECOMMENDATIONS: 1. Continue with current management initiated by Dr. Bernardo and follow [facility] protocol. 2. Physical therapy as tolerated. M Jones HYDE MD DR: HERON/zenobia JOB#: [id number] / [id number]
[2018-05-07] VITALS (9 sets, daily range): BP systolic 123–163; BP diastolic 8–91
[2018-05-07 06:29] LABS: CALCIUM 9.1 mg/dL (8.5-10.1); CREATININE 0.8 mg/dL (0.7-1.3); GFR 99.6; MAGNESIUM 1.3 mg/dL (1.8-2.4); POTASSIUM 3.2 mmol/L (3.5-5.1)
[2018-05-07] MEDS ORDERED: POTASSIUM CHLORIDE 20 MEQ TABLET.ER. PO ONE (07:30)
[2018-05-07] MEDS ORDERED: MAGNESIUM SULFATE 2GM 50 ML IV ONE (07:30)
[2018-05-07] MEDS: NICOTINE 21MG PATCH. TD SCH (07:45)
[2018-05-07] MEDS: chlordiazePOXIDE HCL 25 MG CAPSULE PO PRN (07:45)
[2018-05-07] MEDS: MVI, ADULT NO.4 WITH VIT K 10 ML, FOLIC ACID SYRINGE for ER 1 MG, THIAMINE 100 MG in IV... IV SCH ×8 (08:32→08:41)
[2018-05-07] MEDS: MAGNESIUM CHLORIDE ER 64 MG TABLET.ER PO SCH ×2 (08:42→21:56)
[2018-05-07] MEDS: MAGNESIUM OXIDE 400 MG TABLET PO SCH ×2 (14:10→21:59)
--- NOTE | 2018-05-07 14:34 | PN ---
DATE: 05/07/2018 SUBJECTIVE: The patient is sitting in his chair comfortably, eating his lunch. He continued to be unsteady in his gait, though he is definitely more awake, alert, responding appropriately. He has had no seizures documented. He continues to be on alcohol withdrawal protocol receiving Ativan as well as chlordiazepoxide. He continued to have severe hypomagnesemia despite giving him multiple injections of magnesium sulfate and he is also on Mag-Delay and magnesium oxide. When I questioned him this afternoon, he denied any complaint except that he is unsteady on his feet. It transpired that the patient has insurance and an attempt is made for him to be admitted to a prison facility and/or rehab center. PHYSICAL EXAMINATION: GENERAL: When I examined him this afternoon, he looked pale, but no jaundice, cyanosis, or thyromegaly. No jugular venous distention. No limb edema. VITAL SIGNS: His heart rate was 71, blood pressure was 136/81, temperature was 98.3, respiratory rate was 20, and oxygen saturation was 97%. HEAD, EYES, EARS, NOSE, AND THROAT: Showed normocephalic, atraumatic. NECK: Supple. HEART: Showed normal first and second heart sounds. No gallop, rub, or murmur. CHEST: Clear to auscultation. No crepitation or rhonchi. ABDOMEN: Distended, soft, nontender. NEUROLOGIC: He is definitely more awake, alert, responding appropriately. All cranial nerves intact. He definitely has ataxia, most likely alcohol induced truncal ataxia. His intake over the last 24 hours was 1700, output was 1750. LABORATORY DATA: As of yesterday, his white cell count was 4900, hemoglobin 10, hematocrit 30, MCV 107, and platelet count of 43,000. His chemistry showed a serum sodium 137, potassium 3.2, chloride 104, bicarbonate 25, anion gap of 8, BUN 8, creatinine 0.8, estimated GFR was 99 mL per minute. His glucose was 92, calcium was 9.1, magnesium again was low at 1.3. His total bilirubin and alkaline phosphatase were normal. AST and ALT elevated, total protein was 6.4, albumin was 2.9. ASSESSMENT AND PLAN: 1. Alcohol withdrawal seizure. 2. Alcoholism with alcohol withdrawal syndrome, microcytic anemia with elevated liver enzyme and thrombocytopenia, hyponatremia, hypomagnesemia, hypokalemia, and protein-calorie malnutrition. DENIZ PRO MD DR: ENID/zenobia JOB#: [id number] / [id number]
[2018-05-07] MEDS: IV RINGERS SOLUTION,LACTATED 1,000 ML IV SCH (15:00)
[2018-05-07] MEDS: LORazepam 2 MG/ML VIAL IV PRN (15:03)
[2018-05-07 19:45] LABS: PLT ESTIMATE DECREASED (ADEQUATE)
[2018-05-08 03:00] VITALS: BP 145/76
[2018-05-08 06:39] LABS: CALCIUM 8.9 mg/dL (8.5-10.1); CREATININE 0.8 mg/dL (0.7-1.3); GFR 99.6; MAGNESIUM 1.5 mg/dL (1.8-2.4); POTASSIUM 3.4 mmol/L (3.5-5.1)
[2018-05-08 07:30] VITALS: BP 159/87
[2018-05-08] MEDS ORDERED: POTASSIUM CHLORIDE 20 MEQ TABLET.ER. PO ONE (07:30)
[2018-05-08] MEDS: MAGNESIUM OXIDE 400 MG TABLET PO SCH (08:21)
[2018-05-08] MEDS: NICOTINE 21MG PATCH. TD SCH (08:22)
--- NOTE | 2018-05-08 09:48 | PN ---
DATE: 05/08/2018 HOSPITAL COURSE: The patient is a 57-year-old male patient, who was admitted initially altered mental status and alcohol withdrawal seizures, was continued on alcohol withdrawal protocol as severe hypokalemia and hypomagnesemia that were replenished. The patient is gradually improving. He was very unsteady in his gait and he is now eating and drinking. He is definitely more awake, alert, responding appropriately. Decision was made to discharge him to swing bed to continue the process of rehabilitation. PHYSICAL EXAMINATION: GENERAL: On examining him today, he looked well and was clearly in no apparent respiratory distress, pale, but no jaundice, cyanosis, or thyromegaly. No jugular venous distension. No limb edema. VITAL SIGNS: His heart rate was 83, blood pressure 159/87, temperature was 97.6, respiratory rate was 16, and oxygen saturation was 97% on room air. HEAD, EYES, EARS, NOSE AND THROAT: Normocephalic, atraumatic. NECK: Supple. HEART: Showed normal first and second sounds. No gallop, rub or murmur. CHEST: Clear to auscultation. No crepitation or rhonchi. ABDOMEN: Distended, soft, nontender. NEUROLOGIC: He is definitely more awake, alert, responding appropriately. All cranial nerves are intact. EXTREMITIES: He moves his extremities without difficulty. He is now able to walk with a walker and assistance. His intake was 2400, output 600. LABORATORY DATA: His lab work this morning showed a white cell count 4900, hemoglobin 10, hematocrit 30, MCV 107 and platelet count of 43,000. His chemistry showed a serum sodium 138, potassium 3.4, chloride 105, bicarbonate 26, anion gap of 7, BUN 8, creatinine 0.8, estimated GFR was 99 mL per minute. His glucose was 78. Calcium was 8.9, magnesium was 1.5. DISCHARGE MEDICATIONS: He was discharged to swing bed to continue on magnesium oxide 400 mg twice a day, nicotine transdermal patch 21 mg topically once a day, chlordiazepoxide 50-100 mg as needed every 2 hours p.r.n. for alcohol withdrawal. He is also on clonidine TTS-1 patch topically weekly. FINAL DISCHARGE DIAGNOSES: 1. Alcohol withdrawal syndrome. 2. Alcohol withdrawal seizures. 3. Severe hypokalemia, severe hypomagnesemia, abnormal liver enzymes due to alcohol-induced hepatitis, severe hypoalbuminemia and protein-calorie malnutrition. DENIZ PRO MD DR: ENID/zenobia JOB#: [id number] / [id number]
--- NOTE | 2018-05-08 10:13 | PN ---
DATE: 05/07/2018 SUBJECTIVE: The patient continues to have intermittent tremor of the upper extremity and unsteady gait. He denies any recent seizures since admission. He denies headaches, visual disturbances, nausea, vomiting, chest pain, shortness of breath or palpitation. OBJECTIVE: GENERAL: Well-developed, well-nourished male, not in acute distress. VITAL SIGNS: Blood pressure 136/81, respiratory rate 20, pulse is 71, temperature is 98.6, oxygen saturation 97% on room air. HEENT: Normocephalic, atraumatic, otherwise unremarkable. NECK: Supple. Negative for carotid bruit, lymphadenopathy or thyromegaly. LUNGS: Clear to A and P. CARDIOVASCULAR: Regular rate and rhythm. Normal S1, S2. There is no S3, S4 or murmur. ABDOMEN: Soft. Bowel sounds positive. EXTREMITIES: Negative for cyanosis, clubbing, pitting edema. NEUROLOGICAL: Mental Status: The patient is alert and oriented x 2. The speech is slow this morning. No language dysfunction. The patient recalls 1/3 immediately and after 1 and 3 minutes. Judgment, abstract and thinking are fair. The patient denies hallucination or delusion. Cranial nerves are intact. Motor: No focal muscle bulk was seen. The tone was normal. The strength was 4/5 throughout. The patient has mild postural and kinetic tremors of the upper extremities. Sensory: Revealed normal pinprick, light touch senses throughout. Deep tendon reflexes were symmetric and hypoactive with absent Achilles responses. Gait: The stance is unsteady. The patient has ataxic gait. IMPRESSION: 1. Alcohol withdrawal seizure. 2. Alcoholism with alcohol withdrawal syndrome. 3. Thrombocytopenia and macrocytic type due to alcoholism. RECOMMENDATIONS: 1. Continue with current management initiated by Dr. Bernardo. 2. The patient needs physical therapy and rehabilitation for alcoholism. M Jones HYDE MD DR: HERON/zenobia JOB#: [id number] / [id number]
--- NOTE | 2018-05-08 10:27 | PN ---
DATE: 05/08/2018 SUBJECTIVE: The patient complains of frontal headaches and unsteady gait. He has not had any recurrent seizures since admission. His tremor of the upper extremity has improved. He denies chest pain, shortness of breath or palpitation, dysarthria or dysphagia. OBJECTIVE: GENERAL: Well-developed, well-nourished male, not in acute distress. VITAL SIGNS: Blood pressure 159/87, respiratory rate 16, pulse is 83, temperature is 97.6, oxygen saturation 97% on room air. HEENT: Normocephalic, atraumatic, otherwise unremarkable. NECK: Supple. Negative for carotid bruit, lymphadenopathy or thyromegaly. LUNGS: Clear to A and P. CARDIOVASCULAR: Regular rhythm. Normal S1, S2. There is no S3, S4 or murmur. ABDOMEN: Soft. Bowel sounds positive. EXTREMITIES: Negative for cyanosis, clubbing, pitting edema. NEUROLOGICAL: Mental status: The patient is alert and oriented x 2. The speech is fluent. There is no language dysfunction. Cranial nerves are intact. Motor examination revealed mild postural tremor. The strength was 4/5 throughout. Sensory examination revealed normal pinprick and light touch senses throughout. Deep tendon reflexes were symmetric and hypoactive with absent Achilles responses. Gait: The patient has unsteady stance. IMPRESSION: 1. Alcohol withdrawal seizure -- no recurrence since admission. 2. Alcohol withdrawal syndrome secondary to alcoholism -- improved. 3. Gait disturbances. RECOMMENDATIONS: 1. Continue with current management initiated by Dr. Imani Bernardo. 2. The patient needs physical therapy and alcoholism rehabilitation. M Jones HYDE MD DR: HERON/zenobia JOB#: [id number] / [id number]
== END 2018-05-08 11:11 | disposition swing bed (61) | DRG 433 ==
LOC: ER 02:20 → ICU 03:00
PROVIDERS: ADMIT Internal Medicine; ATTEND Internal Medicine
DX: K70.10 Alcoholic hepatitis without ascites (principal); F10.239 Alcohol dependence with withdrawal, unspecified; E46 Unspecified protein-calorie malnutrition; E87.1 Hypo-osmolality and hyponatremia; D69.6 Thrombocytopenia, unspecified; E83.42 Hypomagnesemia; R56.9 Unspecified convulsions; E87.6 Hypokalemia; D50.9 Iron deficiency anemia, unspecified; D53.9 Nutritional anemia, unspecified; F17.200 Nicotine dependence, unspecified, uncomplicated; J44.9 Chronic obstructive pulmonary disease, unspecified; R29.6 Repeated falls; Y90.0 Blood alcohol level of less than 20 mg/100 ml; E88.09 Other disorders of plasma-protein metabolism, not elsewhere classified; R26.9 Unspecified abnormalities of gait and mobility; Z68.24 Body mass index [BMI] 24.0-24.9, adult
CPT/HCPCS: 36415; 70450; 71045; 80048; 80053; 80076; 80307; 81001; 83735; 84132; 85025; 85610; 85730; 87641; 93005; 96365; 96366; 96375; 97163; G0480; G6039; J2060; J3475; J7120; S0028; 82003; 97110; 97116; 97530; 99285-25; G0479; J7030

== ENCOUNTER 2018-05-08 11:12 | Inpatient (IN) | payer SELFPAY ==
[~2018-05-08] VITALS: Ht 182.9 cm; Wt 82.8 kg
[2018-05-08] MEDS ORDERED: chlordiazePOXIDE HCL 25 MG CAPSULE PO PRN (11:45)
[2018-05-08] MEDS: MAGNESIUM OXIDE 400 MG TABLET PO SCH ×2 (14:16→20:50)
[2018-05-08 18:29] VITALS: BP 143/90
[2018-05-08] MEDS: chlordiazePOXIDE HCL 25 MG CAPSULE PO PRN (20:49)
[2018-05-08] MEDS: POTASSIUM CHLORIDE 20 MEQ TABLET.ER. PO SCH (20:49)
[2018-05-09 05:31] VITALS: BP 116/60
[2018-05-09] MEDS: POTASSIUM CHLORIDE 20 MEQ TABLET.ER. PO SCH ×2 (08:58→20:07)
[2018-05-09] MEDS: MAGNESIUM OXIDE 400 MG TABLET PO SCH ×3 (08:58→20:07)
[2018-05-09] MEDS: NICOTINE 21MG PATCH. TD SCH (09:00)
[2018-05-09 18:17] VITALS: BP 131/82
[2018-05-10 06:05] VITALS: BP 147/79
[2018-05-10 06:51] LABS: CALCIUM 9.3 mg/dL (8.5-10.1); MAGNESIUM 1.6 mg/dL (1.8-2.4)
[2018-05-10] MEDS: POTASSIUM CHLORIDE 20 MEQ TABLET.ER. PO SCH ×2 (08:37→20:19)
[2018-05-10] MEDS: MAGNESIUM OXIDE 400 MG TABLET PO SCH ×3 (08:37→20:19)
[2018-05-10] MEDS: NICOTINE 21MG PATCH. TD SCH (08:38)
[2018-05-10 18:18] VITALS: BP 132/78
[2018-05-11] MEDS: chlordiazePOXIDE HCL 25 MG CAPSULE PO PRN (03:24)
[2018-05-11 03:42] VITALS: BP 142/87
[2018-05-11 06:09] VITALS: BP 120/87
[2018-05-11] MEDS: NICOTINE 21MG PATCH. TD SCH (09:02)
[2018-05-11] MEDS: POTASSIUM CHLORIDE 20 MEQ TABLET.ER. PO SCH ×2 (09:02→19:55)
[2018-05-11] MEDS: MAGNESIUM OXIDE 400 MG TABLET PO SCH ×3 (09:02→19:55)
[2018-05-11] MEDS: GABAPENTIN 100 MG CAPSULE. PO SCH ×2 (14:57→20:07)
[2018-05-11 18:01] VITALS: BP 114/72
[2018-05-12 05:40] VITALS: BP 140/78
[2018-05-12] MEDS: MAGNESIUM OXIDE 400 MG TABLET PO SCH ×3 (08:56→20:20)
[2018-05-12] MEDS: POTASSIUM CHLORIDE 20 MEQ TABLET.ER. PO SCH ×2 (08:56→20:20)
[2018-05-12] MEDS: GABAPENTIN 100 MG CAPSULE. PO SCH ×3 (08:56→20:19)
[2018-05-12] MEDS: NICOTINE 21MG PATCH. TD SCH (08:57)
[2018-05-12] MEDS ORDERED: cloNIDine TTS-1 1 PATCH PATCH TD SCH (09:00)
[2018-05-12 10:15] VITALS: BP 134/80
[2018-05-12 18:32] VITALS: BP 125/84
[2018-05-13 07:03] VITALS: BP 134/80
[2018-05-13] MEDS: GABAPENTIN 100 MG CAPSULE. PO SCH (08:26)
[2018-05-13] MEDS: NICOTINE 21MG PATCH. TD SCH (08:27)
[2018-05-13] MEDS: MAGNESIUM OXIDE 400 MG TABLET PO SCH (08:27)
[2018-05-13] MEDS: POTASSIUM CHLORIDE 20 MEQ TABLET.ER. PO SCH (08:27)
[2018-05-13] MEDS ORDERED: SERT50TA PO (14:06)
[2018-05-13] MEDS ORDERED: GABA-585 PO (14:06)
--- NOTE | 2018-05-13 14:49 | DS ---
DATE OF DISCHARGE: 05/13/2018 HOSPITAL COURSE: The patient is a 57-year-old male patient who was admitted originally on 05/03/2018 through the Emergency Room with a history of convulsion, altered mental status. Apparently, he has been drinking half liter of vodka a day for years. He apparently decided recently to quit. By the time he arrived to the Emergency Room, he was extremely tremulous. His family reported that he has a marked mental status change and an episode of syncope with convulsion. In the Emergency Room, he was in a postictal state, confused, was extensively investigated and was found to be hyponatremic, hypokalemic and markedly hypomagnesemic. His liver enzymes were elevated. His tox screen showed that blood alcohol level was only 10. He was given a banana bag and magnesium sulfate, started on alcohol withdrawal protocol and admitted to the ICU for close observation. He continued to be very restless, agitated, combative, requiring a large amount of Ativan and chlordiazepoxide. He was extremely unsteady in his gait and initially was mostly on IV fluid with daily banana bag. Eventually, his level of consciousness improved; however, he continued to be extremely unsteady in his gait and a decision was made to discharge him to swing bed to continue the process of physical and occupational therapy. The patient actually did very well. He is now more awake, alert, able to take care of himself. He is able to feed himself. He now is able to walk with a walker and the decision was made to discharge him home to continue on his antidepressant as well as Neurontin for his alcohol-induced peripheral neuropathy and lisinopril for his hypertension. PHYSICAL EXAMINATION: GENERAL: When I saw him today, he was sitting in his chair comfortably in no apparent respiratory distress. There is no pallor, jaundice, cyanosis, lymphadenopathy or thyromegaly. No jugular venous distension. No limb edema. VITAL SIGNS: His heart rate was 90, blood pressure was 134/80, temperature was 97.7, respiratory rate was 18 and oxygen saturation was 96%. HEAD, EYES, EARS, NOSE AND THROAT: Normocephalic, atraumatic. NECK: Supple. HEART: Showed normal first and second sounds. No gallop, rub or murmur. CHEST: Clear to auscultation. No crepitation or rhonchi. ABDOMEN: Distended, soft, nontender. No guarding or rigidity. No organomegaly. Hernial orifice intact. Bowel sounds normal. NEUROLOGIC: He was awake, alert, responding appropriately. Cranial nerves intact. EXTREMITIES: She moves extremities without difficulty, ambulates with a walker. LABORATORY DATA: Showed a serum sodium of 137, potassium 4, chloride 103, bicarbonate 28, anion gap of 6, BUN 9, creatinine 1, estimated GFR was 77 mL per minute. His glucose was 107, calcium was 9.3, magnesium was 1.6. DISCHARGE MEDICATIONS: He was discharged home to continue on gabapentin 100 mg 3 times a day, Zoloft 50 mg once a day, lisinopril 10 mg once a day. FINAL DISCHARGE DIAGNOSES: Alcohol withdrawal syndrome, alcohol intoxication, truncal ataxia, alcohol withdrawal seizures, hypertension, alcohol-induced peripheral neuropathy. DENIZ PRO MD DR: EIND/zenobia JOB#: [id number] / [id number]
--- NOTE | 2018-05-13 19:39 | CONS ---
DATE OF CONSULTATION: 05/12/2018 This late entry covers elements not covered in my initial note 05/12/2018. The patient was seen individually in the evening of 05/12/2018. IDENTIFYING DATA: The patient is a 57-year-old male seen on the skilled unit at [facility] for a psychiatric consult requested by Dr. Bernardo on account of the patient's "experiencing episodes of anxiety. The patient is feeling down." Discussed with nursing staff, reviewed the chart, seen individually. CHIEF COMPLAINT: "I have been drinking heavily because my father has disowned me. He knows that I am here, but he has not called. I did this to hurt him. Yes, I am depressed. I can't stop crying. No, I have never been suicidal." HISTORY OF PRESENT ILLNESS: The patient was admitted with alcohol abuse withdrawal and DTs. He was in the ICU initially and was detoxed per Dr. Bernardo and thereafter has been transferred to the skilled care unit. Prior to admission, he also had seizures, altered mental status as he was drinking half a liter of vodka a day for years. Since the detoxification, he is appeared more depressed, sad, admits to significant crying. No suicidal or homicidal ideation. No clear psychotic symptoms. No clear symptoms of bipolar disorder. No history of DUIs. PAST PSYCHIATRIC HISTORY: Positive for depression, anxiety, alcohol abuse as noted. DRUG ALLERGIES: Negative. He is a full code. No current psychotropics are noted in the chart. FAMILY HISTORY: Noncontributory. SOCIAL HISTORY: The patient lives in [place], [place]. Primary care physician there is Dr. Aicha Horta, but he states he has changed physicians to [place], [place], [facility]. MENTAL STATUS EXAM: The patient was seen individually. He is reasonably oriented to place and situation. Speech is coherent. Mood is depressed, anxious. No psychotic symptoms, suicidal or homicidal ideation. Intellect average. Insight showing some improvement. Attention span short. Mood is depressed, anxious. Affect is mood congruent. IMPRESSION: Alcohol abuse dependence, status post alcohol withdrawal with DTs, major depressive disorder, recurrent; anxiety disorder, unspecified. Rest as above. PLAN: From a psychiatric standpoint, we would recommend starting the patient on Zoloft 50 mg a day for now. I have discussed with him at length that he should follow up outpatient at the [facility] either in [place] or [place] and he is agreeable to doing this. He states he wants to stay off alcohol and does not feel he needs any medications to help with keeping him abstinent from alcohol. No suicidal ideation. Dr. Bernardo, thank you for the opportunity to participate in your patient's care. MAN Kyra LAWS MD DR: GEORGETTE/zenobia JOB#: [id number] / [id number]
[2018-05-14] MEDS ORDERED: SERTRALINE 50 MG TABLET. PO SCH (09:00)
== END 2018-05-13 14:45 | disposition home or self-care (01) | DRG 74 ==
LOC: ICU 11:12 → LND 13:07
PROVIDERS: ADMIT Internal Medicine; ATTEND Internal Medicine
DX: G62.1 Alcoholic polyneuropathy (principal); F10.231 Alcohol dependence with withdrawal delirium; E87.1 Hypo-osmolality and hyponatremia; F10.288 Alcohol dependence with other alcohol-induced disorder; R56.9 Unspecified convulsions; I10 Essential (primary) hypertension; E87.6 Hypokalemia; E83.42 Hypomagnesemia; F32.9 Major depressive disorder, single episode, unspecified; F41.9 Anxiety disorder, unspecified
CPT/HCPCS: 36415; 80048; 83735; 97110; 97116; 97530; 97535